=== PATIENT | female | born 1980 | race Caucasian/White ===

== ENCOUNTER 2020-07-27 08:03 | Outpatient (NON) | payer OTHER, SELFPAY ==
[2020-07-28 16:06] LABS: SARS-CoV-2 RNA PCR Negative
== END 2020-07-27 08:04 ==
PROVIDERS: PCP Internal Medicine; Visit Provider Physician Assistant
DX: R68.89 Other general symptoms and signs (principal); Z20.828 Contact with and (suspected) exposure to other viral communicable diseases
CPT/HCPCS: 87635; C9803; U0003

== ENCOUNTER 2021-02-13 00:49 | Day surgery (SDC) | payer OTHER, SELFPAY ==
[2021-01-30 09:32] VITALS: BMI 42.2
[2021-02-13 09:24] VITALS: BP 128/88; PULSE 87; RESP 20; TEMP 36.2; O2SAT 97
--- NOTE | 2021-02-13 09:34 | WPDGICN ---
Assessment and Plan Assessment and plan (1) Nausea: Code(s): R11.0 - Nausea Status: Acute Assessment and Plan: Patient with 8 month history of nausea for this reason EGD will be performed. Patient does have a prior history of acid reflux suggesting this may contribute to this condition although diabetes history suggest she may have gastroparesis. Further recommendations will be given after endoscopy (2) Gastro-esophageal reflux disease without esophagitis: Code(s): K21.9 - Gastro-esophageal reflux disease without esophagitis Status: Acute Assessment and Plan: patient has been maintained on omeprazole but current symptom of nausea as fail to improve with this medication. (3) Morbid obesity with BMI of 40.0-44.9, adult: Code(s): E66.01 - Morbid (severe) obesity due to excess calories; Z68.41 - Body mass index [BMI]40.0-44.9, adult Status: Acute (4) Type 2 diabetes mellitus without complications: Code(s): E11.9 - Type 2 diabetes mellitus without complications Status: Acute GI Consult Note Consult date/time: 02/13/21 09:34 HPI: Kari Wheeler is a 40 year old female Presents for evaluation of nausea. Patient reports for the last 8 months she has nausea that occurs 2 to 3 times a day. She never actually vomits. She denies any heartburn. She has had no difficulty swallowing. She has had no weight loss. There has been no recent changes in her medications. Patient reports that she was diagnosed as having diabetes approximately 3-4 years ago. Currently treated with metformin. She denies any peripheral neuropathy or numbness. Her family history is noncontributory. In the past she was felt to have acid reflux. She has been maintained on omeprazole 20 mg p.o. daily. This has made no change in her nausea. She has supplemented this with antacids and no help in symptoms. Review of Systems Review of Systems: All systems reviewed & are unremarkable except as noted in HPI and below [facility] Family History Family History Father Hypertension Mother Hypertension Sibling Hypertension Other Diabetes mellitus Social History Social History Smoking packs per day: 1 Smoking cigarettes per day: 20.0 Years smoked: 16 Smoking pack-years: 16.00 Smoking status: Former smoker Tobacco type: cigarettes Second hand tobacco smoke exposure: No Smoking end date: 08/19/13 Alcohol intake: current Alcohol use details: socially Living arrangements: with family Spiritual care concerns: No Meds Home Medications and Allergies Home Medications Medication Instructions Recorded Confirmed Type cetirizine 10 mg tablet 10 mg PO DAILY #30 tablet 03/11/20 01/30/21 Rx atorvastatin 10 mg tablet 10 mg PO DAILY #90 tablet 12/01/20 01/30/21 Rx sertraline 50 mg tablet 50 mg PO DAILY #90 tablet 12/01/20 01/30/21 Rx metformin 500 mg tablet 500 mg PO DAILY #90 tablet 12/22/20 01/30/21 Rx lisinopril 5 mg tablet 5 mg PO DAILY #90 tablet 01/24/21 01/30/21 Rx ascorbic acid (vitamin C) [Vitamin 500 mg PO DAILY 01/30/21 01/30/21 History C] aspirin 81 mg PO DAILY 01/30/21 01/30/21 History omeprazole magnesium [Prilosec OTC] 20 mg PO DAILY 01/30/21 01/30/21 History Allergies Allergy/AdvReac Type Severity Reaction Status Date / Time banana Allergy Severe Anaphylaxis Verified 02/13/21 09:23 morphine Allergy Severe Flushing, Verified 02/13/21 09:23 SOB Cashew Allergy Severe Anaphylactic Uncoded 02/13/21 09:23 Shock Tuna Allergy Severe Anaphylactic Uncoded 02/13/21 09:23 Shock Vital Signs Vital Signs - 24 hr 02/13/21 09:24 Temperature 97.2 F L Pulse Rate 87 Respiratory Rate 20 Blood Pressure 128/88 Pulse Oximetry 97 Exam Narrative: Exam Narrative: Physical exam reveals patient to be alert. Vital signs stable.
[2021-02-13] MEDS: LACTATED RINGERS 1,000 ML 150 ML IV CONT (09:44)
[2021-02-13 09:50] LABS: Glucose Point of Care 273 mg/dl (65-105)
--- NOTE | 2021-02-13 10:06 | WPDANESEPPF ---
Anes - Initial Pre Proc Eval Procedure: Operation Date: 02/13/21 10:15 Proposed Procedures p Esophagogastroduodenoscopy - Sergey Carmichael MD Date/Time: 02/13/21 10:06 Surgeon: Sergey Carmichael MD Pre Op Diagnosis: nausea Patient Data Age: 40 Gender: F Height: 1.65 m Weight: 110.9 kg Last Vital Signs Temp 97.2 F L 02/13/21 09:24 Pulse 87 02/13/21 09:24 Resp 20 02/13/21 09:24 BP 128/88 02/13/21 09:24 Pulse Ox 97 02/13/21 09:24 Allergies Allergy/AdvReac Type Severity Reaction Status Date / Time banana Allergy Severe Anaphylaxis Verified 02/13/21 09:23 morphine Allergy Severe Flushing, Verified 02/13/21 09:23 SOB Cashew Allergy Severe Anaphylactic Uncoded 02/13/21 09:23 Shock Tuna Allergy Severe Anaphylactic Uncoded 02/13/21 09:23 Shock Home Medications Medication Instructions Recorded Confirmed Type cetirizine 10 mg tablet 10 mg PO DAILY #30 tablet 03/11/20 01/30/21 Rx atorvastatin 10 mg tablet 10 mg PO DAILY #90 tablet 12/01/20 01/30/21 Rx sertraline 50 mg tablet 50 mg PO DAILY #90 tablet 12/01/20 01/30/21 Rx metformin 500 mg tablet 500 mg PO DAILY #90 tablet 12/22/20 01/30/21 Rx lisinopril 5 mg tablet 5 mg PO DAILY #90 tablet 01/24/21 01/30/21 Rx ascorbic acid (vitamin C) [Vitamin 500 mg PO DAILY 01/30/21 01/30/21 History C] aspirin 81 mg PO DAILY 01/30/21 01/30/21 History omeprazole magnesium [Prilosec OTC] 20 mg PO DAILY 01/30/21 01/30/21 History Laboratory Tests 02/13/21 09:42 POC Capillary Glucose 273 mg/dl H mg/dl (65-105) Patient hx anesthesia problems: none Family hx anesthesia problems: none PMFSH Past Medical History Medical History (Updated 02/13/21 @ 10:07 by Dallas Weldon MD) Gastro-esophageal reflux disease without esophagitis Hyperlipidemia Hypertension Morbid obesity with BMI of 40.0-44.9, adult CHAUNCEY (obstructive sleep apnea) CHAUNCEY (obstructive sleep apnea) Type 2 diabetes mellitus without complications Family History Family History Father Hypertension Mother Hypertension Sibling Hypertension Other Diabetes mellitus Social History Social History Smoking packs per day: 1 Smoking cigarettes per day: 20.0 Years smoked: 16 Smoking pack-years: 16.00 Smoking status: Former smoker Tobacco type: cigarettes Second hand tobacco smoke exposure: No Smoking end date: 08/19/13 Alcohol intake: current Alcohol use details: socially Living arrangements: with family Spiritual care concerns: No Anes - Eval Final PreProcedure Day of Procedure 02/13/21 10:06 Patient weight: morbidly obese Heart: regular rate and rhythm Lungs: clear to auscultation Airway: Mallampati scale class III Neurological: alert and oriented Last oral intake: >/= 8 hours ASA classification: IV Emergent: no Anesthetic plan: proceed Anesthesia type and monitoring: general GIVS and standard monitoring Informed Consent: The patient's anesthetic plan and its attendant risks and benefits were discussed with the patient/family/POA. Questions were solicited and answers provided to the satisfaction of the patient/family/POA.
[2021-02-13] MEDS: BENZOCAINE (*SP) 60 ML SPRAY CAN (HURRICAINE) 1 SPRAY MUCOUS MEM (10:28)
[2021-02-13 10:44] VITALS: BP 113/65; PULSE 83; RESP 13; O2SAT 97
[2021-02-13 10:54] VITALS: BP 108/61; PULSE 77; RESP 14; O2SAT 97
[2021-02-13 11:04] VITALS: BP 109/75; PULSE 79; RESP 18; O2SAT 95
== END 2021-02-13 11:18 | disposition home or self-care (01) ==
PROVIDERS: PCP Internal Medicine; Visit Provider Internal Medicine Gastroenterology
PROC: 0DJ08ZZ Inspection of Upper Intestinal Tract, Via Natural or Artificial Opening Endoscopic (ICD-10-PCS; CPT 43235; principal; 2021-02-13 10:15)
DX: R11.0 Nausea (principal); K31.7 Polyp of stomach and duodenum; K21.9 Gastro-esophageal reflux disease without esophagitis; Z79.84 Long term (current) use of oral hypoglycemic drugs; Z79.82 Long term (current) use of aspirin; I10 Essential (primary) hypertension; G47.33 Obstructive sleep apnea (adult) (pediatric); E11.9 Type 2 diabetes mellitus without complications; Z87.891 Personal history of nicotine dependence; E66.01 Morbid (severe) obesity due to excess calories; Z68.41 Body mass index [BMI] 40.0-44.9, adult
CPT/HCPCS: 43251; 82948; 88305; J2704; J7120

== ENCOUNTER 2021-02-24 09:31 | Outpatient (CLI) | payer OTHER, SELFPAY ==
--- NOTE | ~2021-02-24 | NM_ITS ---
EXAM: NM gastric emptying study DATE: 02/24/2021 14:41 INDICATION: Nausea. TECHNIQUE: A gastric emptying study was performed using the methodology of Noel OLMEDO, et al. J Nucl Med 2007; 48:568-572. The patient was given a meal consisting of 2 scrambled eggs labeled with 0.981 mCi Tc-99m sulfur colloid, 2 slices of toast, two packages of jam, and approximately 120 mL of water . Simultaneous anterior and posterior 1-min images of the abdomen were obtained with the patient supi ne at multiple time points over a total period of 4 hours. The geometric mean of anterior and posteri or views was determined, and the percentage retention was calculated for each time point. COMPARISON: CT abdomen and pelvis 05/02/2018 FINDINGS: Gastric retention of the radiotracer-labeled meal was 43%, 29%, and 3% at the 1-hour, 2-ho ur, and 4-hour time points, respectively. With this technique, apparent rapid gastric emptying is sug gested by <30% gastric retention at 1 hour. Delayed gastric emptying is defined by gastric retention of >90% at 1 hour, >60% retention at 2 hours, or >10% retention at 4 hours. IMPRESSION: 1. Normal gastric emptying. Reviewed, dictated and finalized at location A. IMPRESSION: 1. Normal gastric emptying.
== END 2021-02-24 09:32 | disposition home or self-care (01) ==
LOC: ANHIMG 09:37
PROVIDERS: PCP Internal Medicine; Visit Provider Internal Medicine Gastroenterology
DX: R11.0 Nausea (principal)
CPT/HCPCS: 78264; A9541

== ENCOUNTER 2021-12-12 14:33 | Outpatient (CLI) | payer OTHER, SELFPAY ==
--- NOTE | ~2021-12-12 | MR_ITS ---
EXAMINATION: MR foot RT wo con DATE: 12/12/2021 15:21 INDICATION: Sudden onset right great toe pain TECHNIQUE: Magnetic resonance imaging (MRI) of the right fore/mid foot was performed without intraven ous contrast. Sequences included sagittal T1-weighted FSE, sagittal fluid sensitive FSE STIR, coronal PD-weighted FS FSE, coronal T1-weighted FSE, axial PD-weighted FS FSE, and axial PD-weighted FSE. COMPARISON: None FINDINGS: Bone alignment is normal. Prominent low signal intensity bone island at the middle cuneiform. Bone ma rrow signal is normal with no fracture, reactive edema or pathologic marrow replacing process. 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 Lisfranc ligament complex and the collateral ligament complex at the metatarsophalangeal and interphalangeal joints are normal. Small amount of fluid consistent with mild tenosynovitis extendin g along the normal distal peroneus brevis longus tendon at the midfoot. The visualized portions of th e flexor and extensor tendons as well as intrinsic musculature of the foot are normal. IMPRESSION: 1. Mild tenosynovitis along the distal peroneus longus tendon. Otherwise unremarkable MRI of the righ t fore and midfoot. Reviewed, dictated and finalized at location B. IMPRESSION: 1. Mild tenosynovitis along the distal peroneus longus tendon. Otherwise unrema rkable MRI of the right fore and midfoot.
== END 2021-12-12 14:34 | disposition home or self-care (01) ==
LOC: ANHIMG 14:36
PROVIDERS: PCP Internal Medicine; Visit Provider Orthopaedic Surgery
DX: M79.671 Pain in right foot (principal); M84.374A Stress fracture, right foot, initial encounter for fracture
CPT/HCPCS: 73718